=== PATIENT | male | born 1990 | race Caucasian/White ===

== ENCOUNTER 2021-11-24 21:33 | Emergency (ER) | payer OTHER ==
[~2021-11-24] VITALS: Ht 190.5 cm; Wt 68.0 kg
[2021-11-25] MEDS ORDERED: CENTANY30 GM TOP (02:48)
== END 2021-11-25 02:54 | disposition home or self-care (01) ==
LOC: ER 21:33
DX: S90.31XA Contusion of right foot, initial encounter (principal); X58.XXXA Exposure to other specified factors, initial encounter; Y93.9 Activity, unspecified; Y92.9 Unspecified place or not applicable; Y99.9 Unspecified external cause status